=== PATIENT | male | born 1970 | race Caucasian/White ===

== ENCOUNTER 2018-03-23 15:19 | Emergency (ER) | payer OTHER ==
[~2018-03-23] VITALS: Ht 175.3 cm; Wt 99.8 kg
--- NOTE | 2018-03-23 16:13 | PHYS DOC ---
Adult General Chief Complaint Chief Complaint: ANKLE PROBLEM HPI HPI 47-year-old otherwise healthy male presents with left ankle pain and swelling. He states he twisted his ankle proximally 6 weeks ago and a significant amount of swelling at that time. He states he has been able to be active on it but he has had some continued swelling. He thinks the swelling is going up into his lower leg now. He states the pain is much better than it has been. He also thinks that he may be losing some hair over that area and was worried about some circulation issues. Also he states his is worried that he might have a blood clot.[] Review of Systems Review of Systems Constitutional: Denies fever or chills [] Eyes: Denies change in visual acuity, redness, or eye pain [] HENT: Denies nasal congestion or sore throat [] Respiratory: Denies cough or shortness of breath [] Cardiovascular: No chest pain, shortness of breath or dyspnea on exertion[] GI: Denies abdominal pain, nausea, vomiting, bloody stools or diarrhea [] : Denies dysuria or hematuria [] Musculoskeletal: Denies back pain or joint pain [] Integument: Denies rash or skin lesions [] Neurologic: Denies headache, focal weakness or sensory changes [] Endocrine: Denies polyuria or polydipsia [] All other systems were reviewed and found to be within normal limits, except as documented in this note. Physical Exam Physical Exam Constitutional: Well developed, well nourished, no acute distress, non-toxic appearance. [] HENT: Normocephalic, atraumatic, bilateral external ears normal, oropharynx moist, no oral exudates, nose normal. [] Eyes: PERRLA, EOMI, conjunctiva normal, no discharge. [] Neck: Normal range of motion, no tenderness, supple, no stridor. [] Cardiovascular:Heart rate regular rhythm, no murmur [] Lungs & Thorax: Bilateral breath sounds clear to auscultation [] Abdomen: Bowel sounds normal, soft, no tenderness, no masses, no pulsatile masses. [] Skin: Warm, dry, no erythema, no rash. [] Back: No tenderness, no CVA tenderness. [] Extremities: Left ankle has some mild swelling no ecchymosis no obvious deformity I do not appreciate any lower leg swelling and there is negative Homans sign. [] Neurologic: Alert and oriented X 3, normal motor function, normal sensory function, no focal deficits noted. [] Psychologic: Affect normal, judgement normal, mood normal. [] EKG EKG [] Radiology/Procedures Radiology/Procedures [] Impressions: REASON: LEFT leg swelling PROCEDURE: VENOUS LOWER EXTREMITY LEFT Left leg venous Doppler study: Clinical indications: Left leg swelling and pain. Findings: Duplex sonography (including tobar scale evaluation and color flow and waveform spectral analysis) of the proximal aspect of the greater saphenous vein and the proximal aspect of the profunda femoral vein and the entire length of the common femoral and superficial femoral and popliteal veins and the tibioperoneal trunk and the proximal aspect of the posterior tibial and peroneal veins of the left leg was performed. Normal compressibility, augmentation of color Doppler flow after calf compression, and respiratory variation of Doppler flow is seen. Thus, there are no sonographic findings of deep venous thrombosis within these veins. Impression: There are no sonographic findings of deep venous thrombosis within the veins discussed above of the left lower extremity. Course & Med Decision Making Course & Med Decision Making Pertinent Labs and Imaging studies reviewed. (See chart for details) [] Dragon Disclaimer Dragon Disclaimer This electronic medical record was generated, in whole or in part, using a voice recognition dictation system. Departure Departure: Impression: Primary Impression: High ankle sprain Disposition: 01 HOME, SELF-CARE Condition: STABLE Referrals: [facility]ER[facility] (PCP) Patient Instructions: Ankle Sprain Problem Qualifiers Primary Impression: High ankle sprain Encounter type: initial encounter Laterality: right Qualified Codes: S93.431A - Sprain of tibiofibular ligament of right ankle, initial encounter THELMA WEAVER DO Mar 23, 2018 16:13
[2018-03-23 16:51] VITALS: BP 142/100
--- NOTE | 2018-03-23 16:52 | RAD ---
Left leg venous Doppler study: Clinical indications: Left leg swelling and pain. Findings: Duplex sonography (including tobar scale evaluation and color flow and waveform spectral analysis) of the proximal aspect of the greater saphenous vein and the proximal aspect of the profunda femoral vein and the entire length of the common femoral and superficial femoral and popliteal veins and the tibioperoneal trunk and the proximal aspect of the posterior tibial and peroneal veins of the left leg was performed. Normal compressibility, augmentation of color Doppler flow after calf compression, and respiratory variation of Doppler flow is seen. Thus, there are no sonographic findings of deep venous thrombosis within these veins. Impression: There are no sonographic findings of deep venous thrombosis within the veins discussed above of the left lower extremity. Electronically signed by: Rubén Vaughan MD (03/23/2018 4:48 PM) [facility]
== END 2018-03-23 17:10 | disposition home or self-care (01) ==
LOC: ER 15:19
DX: S93.431A Sprain of tibiofibular ligament of right ankle, initial encounter (principal); X50.1XXA Overexertion from prolonged static or awkward postures, initial encounter; Y93.89 Activity, other specified; Y92.89 Other specified places as the place of occurrence of the external cause; Y99.8 Other external cause status
CPT/HCPCS: 36415; 85379; 93971; 99284